=== PATIENT | female | born 1995 ===

== ENCOUNTER 2025-05-03 07:00 | Day surgery (SDC) | payer OTHER ==
[2025-04-29 12:07] VITALS: BP 124/84
[2025-04-29 13:11] LABS: URINE APPEARANCE Clear; URINE BILIRRUBIN Negative (NEGATIVE); URINE BLOOD Negative; URINE COLOR Yellow; URINE GLUCOSE Negative (NEGATIVE); URINE KETONE Negative (NEGATIVE); URINE LEUKOCYTE Negative; URINE NITRATE Negative; URINE PROTEIN Negative (NEGATIVE); URINE UROBILINOGEN 0.2 E.U./dl
[2025-04-29 13:17] LABS: BASO % 1.0 % (0.1-1.2); EOS # 0.15 (0.04-0.54); EOS % 2.1 % (0.7-7.0); LYMPH # 2.02 (1.18-3.74); LYMPH % 28.9 % (19.3-53.1); MEAN PLATELET VOLUME 9.10 fl (9.4-12.4); MONO # 0.42 (0.24-0.82); MONO % 6.0 % (4.7-12.5); NEUT # 4.33 (1.56-6.13); NEUT % 61.9 % (34.0-71.1); RED CELL DISTRIBUTION WIDTH 13.0 % (11.6-14.4); URINE BACTERIA 84.0 uL (0.0-1933); URINE EPITHELIAL CELLS 5.8 uL (0.0-38.8); URINE WBC 4.0 uL (0.0-23.2)
[2025-04-29 13:22] LABS: URINE CAST 0.00 uL (0.0-1.40); URINE RBC 0.4 uL (0.0-20.8)
[2025-04-29 13:32] LABS: ALT/SGPT 25.0 U/L (12-78); AST/SGOT 14.0 U/L (15-37); BILIRUBIN TOTAL 0.83 mg/dL (0.3-1.2); BUN CREA RATIO 15.0 (7.0-25.0); CREATININE SERUM 0.66 mg/dL (0.55-1.02); GFR 104.46; GLOBULINA 3.5 G/DL (2.4-3.5); GLUCOSE FASTING 82.0 mg/dL (65-100); OSMOLALITY SERUM 283.0 MOSM/KG (275-295)
[2025-04-29 13:35] LABS: INR 1.01
[~2025-05-03] VITALS: Ht 162.6 cm; Wt 72.6 kg
[~2025-05-03 07:00] MED LIST: SYNTHROID125 MCG PO
[2025-05-03] MEDS ORDERED: CEFAZOLIN SODIUM 1,000 MG VIAL ONE (08:12)
[2025-05-03] MEDS ORDERED: ISOPROPYL ALCOHOL 30 ML OUNCE TOP ONE (10:45)
[2025-05-03] MEDS ORDERED: BUPIVACAINE HCL/PF 0.25% 30ML VIAL InF ONE (10:45)
[2025-05-03 14:55] VITALS: BP 118/74; O2SAT 100
== END 2025-05-03 13:30 | disposition home or self-care (01) ==
LOC: CIR.AMB 07:00
PROVIDERS: ATTEND Orthopaedic Surgery Hand Surgery
DX: S62.623A Displaced fracture of middle phalanx of left middle finger, initial encounter for closed fracture (principal)